=== PATIENT | male | born 1965 | race Two or more races ===

== ENCOUNTER 2020-10-14 12:49 | Emergency (ER) | payer BC, OTHER ==
[2020-10-14 13:08] VITALS: BP 154/96; PULSE 86; TEMP 98.5; BMI 27.3
[2020-10-14] MEDS ORDERED: KETOROLAC TROMETHAMINE 30 MG/1 ML VIAL IM ONE (13:56)
[2020-10-14] MEDS ORDERED: KETOROLAC TROMETHAMINE 30 MG/1 ML VIAL ONE (14:16)
== END 2020-10-14 15:25 | disposition home or self-care (01) ==
LOC: JER 12:49
PROC: 3E0233Z Introduction of Anti-inflammatory into Muscle, Percutaneous Approach (ICD-10-PCS; principal; 2020-10-14)
DX: M25.571 Pain in right ankle and joints of right foot (principal)
CPT/HCPCS: 72100-TC-FY; 73610-TC-RT-FY; 73630-TC-RT-FY; 99284-25